=== PATIENT | female | born 1990 | race Two or more races ===

== ENCOUNTER → 2018-03-18 | Outpatient (REF) | payer OTHER | LOC: M LABDRAW1 10:43 | DX: M25.552 Pain in left hip (principal) ==

== ENCOUNTER → 2020-05-05 | Outpatient (CLI) | payer OTHER | LOC: M LABSMTC 10:26 | PROVIDERS: ATTEND Physical Medicine & Rehabilitation | DX: Z03.818 Encounter for observation for suspected exposure to other biological agents ruled out (principal); Z11.59 Encounter for screening for other viral diseases ==

== ENCOUNTER → 2020-08-30 | Outpatient (CLI) | payer OTHER | LOC: M LABSMTC 13:59 | PROVIDERS: ATTEND Physical Medicine & Rehabilitation | DX: Z01.812 Encounter for preprocedural laboratory examination (principal); Z20.828 Contact with and (suspected) exposure to other viral communicable diseases ==

== ENCOUNTER → 2021-07-10 | Outpatient (CLI) | payer OTHER ==
--- NOTE | 2021-07-10 14:11 | REP ---
INDICATION: SPONDYLOSIS. COMPARISON: 11/05/2019. TECHNIQUE: Multiple sequences obtained in the sagittal and axial planes. FINDINGS: There is again mild loss of height of the L4 vertebral body with a small Schmorl's node at the superior endplate, unchanged. A small Schmorl's node it superiorly at L2 is also unchanged. No acute marrow edema is seen. A tiny hemangioma of L2 is again noted. There is loss of water signal with disc degeneration and disc space narrowing at L1-2, unchanged. The conus is unremarkable. At L1-2 there is minimal diffuse disc bulging without spinal stenosis or foraminal narrowing. At L2-3 there is not significant disc bulging or herniation. There is no spinal stenosis or neural foraminal narrowing. At L3-4 there is mild diffuse disc bulging with hypertrophic change at the posterior facet joints. There is mild narrowing of the spinal canal mild bilateral foraminal narrowing unchanged. At L4-5 there is mild diffuse disc bulging and mild hypertrophic change at the posterior facet joints. There is no spinal stenosis. There is very mild bilateral foraminal narrowing. At L5-S1 there is mild diffuse disc bulging. There is mild hypertrophic change at the posterior facet joints. There is no spinal stenosis. There is very mild bilateral foraminal narrowing. IMPRESSION: Stable MR findings of the lumbar spine as discussed in detail above, with no significant change compared to 11/05/2019. <Electronically signed by Giuseppe Rascon > 07/10/21 [id number]
== END ==
LOC: M PLAIMG 12:38
PROVIDERS: ATTEND Physician Assistant
DX: M47.26 Other spondylosis with radiculopathy, lumbar region (principal)